=== PATIENT | female | born 1960 | race African-American/Black ===

== ENCOUNTER 2018-05-24 11:00 | Inpatient (IN) | payer MEDICARE, MEDICAID ==
[~2018-05-24] VITALS: Ht 162.6 cm; Wt 91.6 kg
[2018-05-24] MEDS ORDERED: IPRATROPIUM BROMIDE (0.02%) 0.5MG/2.5ML NEB HHN STA ×2 (12:45→19:34)
[2018-05-24] MEDS ORDERED: ALBUTEROL (0.083%) 2.5MG/3ML NEB HHN STA ×2 (12:45→19:34)
[2018-05-24] MEDS ORDERED: SODIUM CHLORIDE 0.9% 1000ML BAG (SEPSIS BOLUS) IV ONE (12:45)
[2018-05-24] MEDS ORDERED: METHYLPREDNISOLONE SOD SUCC 125 MG/2 ML VIAL IV STA (12:45)
[2018-05-24] MEDS ORDERED: LEVOFLOXACIN 750MG PREMIX 150 ML IV ONE (12:45)
[2018-05-24] MEDS ORDERED: MAGNESIUM 2 G PREMIX 50 ML IV ONE (12:45)
[2018-05-24 13:14] LABS: HEMATOCRIT. 50.6 % (36.0-48.0); HEMOGLOBIN. 16.7 g/dL (12.0-16.0); MEAN CORPUSCULAR HEMOGLOBIN 30.5 pg (28.0-32.0); RED CELL DISTRIBUTION WIDTH 16.3 % (11.6-14.6)
[2018-05-24 13:22] LABS: CHLORIDE 104 mEq/L (98-107)
[2018-05-24 13:59] LABS: PLATELET ESTIMATE NORMAL
[2018-05-24 14:29] LABS: PLATELET 200 x1000/uL (130-400)
[2018-05-24 15:22] LABS: CLARITY URINE CLEAR (CLEAR); COLOR URINE YELLOW (YELLOW); KETONES URINE TRACE (NEGATIVE); LEUKOCYTE ESTERASE URINE NEGATIVE (NEGATIVE); NITRITE URINE NEGATIVE (NEGATIVE); OCCULT BLOOD URINE NEGATIVE (NEGATIVE); PROTEIN URINE TRACE (NEGATIVE); SPECIFIC GRAVITY URINE 1.015 (1.005-1.030); UROBILINOGEN URINE 0.2 E.U./dL (0.2-1.0)
[2018-05-24] MEDS ORDERED: ONDANSETRON HCL 4MG/2ML INJ IV PRN (16:15)
[2018-05-24] MEDS ORDERED: MAGNESIUM/ALUMINUM HYDROXIDE/SIMETHICONE 30ML UDC PO PRN (16:15)
[2018-05-24] MEDS ORDERED: CLONIDINE 0.1MG TABLET PO PRN (16:15)
[2018-05-24] MEDS ORDERED: ACETAMINOPHEN 325MG TABLET PO PRN (16:15)
[2018-05-24] MEDS ORDERED: DOCUSATE SODIUM 100MG CAPSULE PO PRN (16:15)
[2018-05-24 18:21] LABS: PARTIAL THROMBOPLASTIN TIME 28.9 sec (23.4-31.0); PROTHROMBIN TIME 10.1 sec (9.1-11.1)
[2018-05-24] MEDS ORDERED: METHYLPREDNISOLONE SOD SUCC 125 MG/2 ML VIAL IV SCH (20:00)
[2018-05-24 21:30] VITALS: BP 141/88
[2018-05-24] MEDS ORDERED: NORT25CA PO (22:28)
[2018-05-24] MEDS: METHYLPREDNISOLONE SOD SUCC 125 MG/2 ML VIAL IV SCH (22:42)
[2018-05-24] MEDS: ENOXAPARIN 40MG/0.4ML SYR SUBCUT SCH (22:42)
[2018-05-24] MEDS: HYDROCODONE/ACETAMINOPHEN 5/325MG TABLET PO PRN (22:44)
[2018-05-24] MEDS: GUAIFENESIN 200MG/10ML SUGAR FREE UDC PO PRN (22:47)
[2018-05-25] VITALS: BP_SYST 136; BP_SYST 138; BP_DIAS 86
[2018-05-25] MEDS ORDERED: OMEP20CA10 PO (00:43)
[2018-05-25] MEDS ORDERED: ASPI-1159 PO (00:43)
[2018-05-25] MEDS ORDERED: NAPR-1176 PO (00:43)
[2018-05-25] MEDS ORDERED: FLUT1DIS3 IH (00:46)
[2018-05-25] MEDS ORDERED: TIOT18CA3 IH (00:47)
[2018-05-25] MEDS ORDERED: DIPH25CA83 PO (00:47)
[2018-05-25] MEDS ORDERED: METH500T6 PO (00:50)
[2018-05-25] MEDS: IPRATROPIUM/ALBUTEROL 0.5-3(2.5)MG/3ML NEB INH SCH ×4 (01:31→20:43)
[2018-05-25 04:00] VITALS: BP 166/89
[2018-05-25] MEDS: METHYLPREDNISOLONE SOD SUCC 125 MG/2 ML VIAL IV SCH ×4 (04:27→22:14)
[2018-05-25] MEDS: GUAIFENESIN 200MG/10ML SUGAR FREE UDC PO PRN (04:27)
[2018-05-25] MEDS: HYDROCODONE/ACETAMINOPHEN 5/325MG TABLET PO PRN ×2 (04:29→22:31)
[2018-05-25 07:00] LABS: BASOPHILS % 0.3 % (0.0-2.0); HEMATOCRIT. 48.3 % (36.0-48.0); HEMOGLOBIN. 15.6 g/dL (12.0-16.0); LYMPHOCYTES % 13.5 % (20.0-50.0); MEAN CORPUSCULAR HEMOGLOBIN 30.3 pg (28.0-32.0); MEAN CORPUSCULAR VOLUME 93.5 fL (81.0-99.0); MEAN PLATELET VOLUME 9.4 fl (7.4-10.4); MONOCYTES % 3.3 % (2.0-8.0); NEUTROPHILS % 82.9 % (40.0-76.0); PLATELET 165 x1000/uL (130-400); RED BLOOD CELL COUNT 5.16 mill/uL (4.2-5.4); RED CELL DISTRIBUTION WIDTH 16.4 % (11.6-14.6)
[2018-05-25 07:10] LABS: CHLORIDE 104 mEq/L (98-107)
[2018-05-25 07:47] LABS: BG BASE EXCESS 4.1 mmol/L (-2.0-2.0); BG CARBOXYHEMOGLOBIN 2.5 % (0.5-1.5); BG DEOXYHEMOGLOBIN 14.1 % (0.0-5.0); BG HCO3 ACT 31.3 mmol/L (22.0-26.0); BG METHEMOGLOBIN 0.1 % (0.0-1.5); BG OXYGEN SATURATION 85.5 % (92.0-98.5); BG OXYHEMOGLOBIN 83.3 % (94.0-97.0); BG PCO2 56.6 mmHg (35.0-45.0); BG PH 7.361 (7.350-7.450); BG PO2 53.1 mmHg (75.0-100.0); BG SAMPLE SITE RIGHT BRACHIAL; BG TOTAL HEMOGLOBIN 16.1 g/dL (12.0-18.0); BG VENT MODE NASAL CANNULA
[2018-05-25 08:00] VITALS: BP 152/85
[2018-05-25] MEDS: AMLODIPINE 10MG TABLET PO SCH (09:40)
[2018-05-25 12:00] VITALS: BP 132/44
[2018-05-25] MEDS ORDERED: LEVOFLOXACIN 500MG PREMIX 100 ML IV SCH (13:00)
[2018-05-25] MEDS ORDERED: LIDOCAINE HCL/PF 1% 2ML VIAL ONE (14:09)
[2018-05-25] MEDS: LORATADINE 10MG TABLET PO SCH (14:43)
[2018-05-25] MEDS: NICOTINE 14MG PATCH TD SCH (14:43)
[2018-05-25 16:00] VITALS: BP 155/76
[2018-05-25] MEDS: MONTELUKAST SODIUM 10MG TABLET PO SCH (17:00)
[2018-05-25 20:00] VITALS: BP 137/75
[2018-05-25] MEDS: FAMOTIDINE 20MG/2ML VIAL IV SCH (22:13)
[2018-05-25] MEDS: ENOXAPARIN 40MG/0.4ML SYR SUBCUT SCH (22:15)
[2018-05-26] MEDS ORDERED: NORT10CA PO (00:39)
[2018-05-26 00:43] VITALS: BP 130/72
[2018-05-26] MEDS: IPRATROPIUM/ALBUTEROL 0.5-3(2.5)MG/3ML NEB INH SCH ×3 (01:59→20:50)
[2018-05-26 04:00] VITALS: BP 122/71
[2018-05-26] MEDS: METHYLPREDNISOLONE SOD SUCC 125 MG/2 ML VIAL IV SCH ×4 (04:44→21:41)
[2018-05-26] MEDS: HYDROCODONE/ACETAMINOPHEN 5/325MG TABLET PO PRN ×4 (04:45→21:43)
[2018-05-26 08:00] VITALS: BP 135/75
[2018-05-26] MEDS: FAMOTIDINE 20MG/2ML VIAL IV SCH ×2 (08:34→21:41)
[2018-05-26] MEDS: LORATADINE 10MG TABLET PO SCH (08:34)
[2018-05-26] MEDS: NICOTINE 14MG PATCH TD SCH (08:34)
[2018-05-26] MEDS: AMLODIPINE 10MG TABLET PO SCH (08:35)
[2018-05-26] MEDS: IPRATROPIUM/ALBUTEROL 0.5-3(2.5)MG/3ML NEB INH PRN (10:05)
[2018-05-26 10:36] LABS: BG BASE EXCESS 3.4 mmol/L (-2.0-2.0); BG CARBOXYHEMOGLOBIN 1.2 % (0.5-1.5); BG DEOXYHEMOGLOBIN 1.5 % (0.0-5.0); BG FRACTION INSPIRED OXYGEN 60; BG HCO3 ACT 30.3 mmol/L (22.0-26.0); BG METHEMOGLOBIN 0.4 % (0.0-1.5); BG OXYGEN SATURATION 98.5 % (92.0-98.5); BG OXYHEMOGLOBIN 96.9 % (94.0-97.0); BG PCO2 54.8 mmHg (35.0-45.0); BG PH 7.361 (7.350-7.450); BG PO2 125.7 mmHg (75.0-100.0); BG SAMPLE SITE RIGHT RADIAL; BG TOTAL HEMOGLOBIN 15.9 g/dL (12.0-18.0); BG VENT MODE MASK - BIPAP; BG VENT RATE 14 set
[2018-05-26 12:00] VITALS: BP 119/48
[2018-05-26] MEDS ORDERED: DOCUSATE SODIUM 250MG CAPSULE PO NR (15:15)
[2018-05-26] MEDS ORDERED: LACTULOSE 20G/30ML UDC PO NR (15:15)
[2018-05-26 16:00] VITALS: BP 124/51
[2018-05-26] MEDS: MONTELUKAST SODIUM 10MG TABLET PO SCH (17:02)
[2018-05-26] MEDS: LEVOFLOXACIN 500MG PREMIX 100 ML IV SCH (17:03)
[2018-05-26 20:00] VITALS: BP 110/47
[2018-05-26] MEDS: GUAIFENESIN 200MG/10ML SUGAR FREE UDC PO PRN (21:41)
[2018-05-26] MEDS: FLUTICASONE PROPIONATE 50MCG/SPRAY BOTTLE BOTHNSTRLS SCH (21:42)
[2018-05-26] MEDS: ENOXAPARIN 40MG/0.4ML SYR SUBCUT SCH (21:42)
[2018-05-26] MEDS: GUAIFENESIN 600MG ER TABLET PO SCH (21:42)
[2018-05-27] VITALS: BP 111/68
[2018-05-27] MEDS: IPRATROPIUM/ALBUTEROL 0.5-3(2.5)MG/3ML NEB INH SCH ×5 (01:45→20:26)
[2018-05-27 04:00] VITALS: BP 121/69
[2018-05-27] MEDS: METHYLPREDNISOLONE SOD SUCC 125 MG/2 ML VIAL IV SCH ×4 (04:30→21:12)
[2018-05-27] MEDS: HYDROCODONE/ACETAMINOPHEN 5/325MG TABLET PO PRN ×4 (05:30→21:26)
[2018-05-27 08:00] VITALS: BP 148/87
[2018-05-27] MEDS: NICOTINE 14MG PATCH TD SCH (08:57)
[2018-05-27] MEDS: LORATADINE 10MG TABLET PO SCH (08:58)
[2018-05-27] MEDS: FLUTICASONE PROPIONATE 50MCG/SPRAY BOTTLE BOTHNSTRLS SCH ×2 (08:58→21:12)
[2018-05-27] MEDS: GUAIFENESIN 600MG ER TABLET PO SCH ×2 (08:58→21:12)
[2018-05-27] MEDS: AMLODIPINE 10MG TABLET PO SCH (08:58)
[2018-05-27] MEDS: FAMOTIDINE 20MG/2ML VIAL IV SCH ×2 (08:58→21:12)
[2018-05-27] MEDS: OXYMETAZOLINE HCL NASAL SPRAY 15ML BOTHNSTRLS PRN (08:59)
[2018-05-27 12:00] VITALS: BP 128/75
[2018-05-27] MEDS: LEVOFLOXACIN 500MG PREMIX 100 ML IV SCH (15:06)
[2018-05-27 16:00] VITALS: BP 109/48
[2018-05-27] MEDS: MONTELUKAST SODIUM 10MG TABLET PO SCH (16:39)
[2018-05-27] MEDS: GUAIFENESIN 200MG/10ML SUGAR FREE UDC PO PRN (16:51)
[2018-05-27] MEDS ORDERED: TERBUTALINE SULFATE 1MG/ML VIAL SUBCUT NR (17:15)
[2018-05-27 20:00] VITALS: BP 137/61
[2018-05-27] MEDS: ENOXAPARIN 40MG/0.4ML SYR SUBCUT SCH (21:12)
[2018-05-27] MEDS ORDERED: DIPHENHYDRAMINE 50MG/ML VIAL IV PRN (22:45)
[2018-05-28] VITALS: BP 126/63
[2018-05-28] MEDS: IPRATROPIUM/ALBUTEROL 0.5-3(2.5)MG/3ML NEB INH SCH ×4 (00:26→20:08)
[2018-05-28 04:00] VITALS: BP 105/57
[2018-05-28] MEDS: METHYLPREDNISOLONE SOD SUCC 125 MG/2 ML VIAL IV SCH ×2 (05:12→11:23)
[2018-05-28] MEDS: HYDROCODONE/ACETAMINOPHEN 5/325MG TABLET PO PRN ×3 (05:13→18:54)
[2018-05-28 08:00] VITALS: BP 138/70
[2018-05-28] MEDS: FLUTICASONE PROPIONATE 50MCG/SPRAY BOTTLE BOTHNSTRLS SCH ×2 (08:16→21:08)
[2018-05-28] MEDS: GUAIFENESIN 200MG/10ML SUGAR FREE UDC PO PRN ×2 (08:16→21:14)
[2018-05-28] MEDS: FAMOTIDINE 20MG/2ML VIAL IV SCH ×2 (08:17→21:00)
[2018-05-28] MEDS: AMLODIPINE 10MG TABLET PO SCH (08:17)
[2018-05-28] MEDS: OXYMETAZOLINE HCL NASAL SPRAY 15ML BOTHNSTRLS PRN (08:17)
[2018-05-28] MEDS: LORATADINE 10MG TABLET PO SCH (08:17)
[2018-05-28] MEDS: NICOTINE 14MG PATCH TD SCH (08:18)
[2018-05-28] MEDS: GUAIFENESIN 600MG ER TABLET PO SCH ×2 (08:18→21:12)
[2018-05-28] MEDS: IPRATROPIUM/ALBUTEROL 0.5-3(2.5)MG/3ML NEB INH PRN (11:34)
[2018-05-28 12:00] VITALS: BP 127/74
[2018-05-28] MEDS: LEVOFLOXACIN 500MG PREMIX 100 ML IV SCH (14:18)
[2018-05-28] MEDS ORDERED: TERBUTALINE SULFATE 1MG/ML VIAL SUBCUT SCH (15:00)
[2018-05-28 16:00] VITALS: BP 129/76
[2018-05-28] MEDS ORDERED: METHYLPREDNISOLONE SOD SUCC 40 MG/ML VIAL IV SCH (18:00)
[2018-05-28] MEDS: MONTELUKAST SODIUM 10MG TABLET PO SCH (18:46)
[2018-05-28] MEDS: PREDNISONE 20MG TABLET PO SCH (18:55)
[2018-05-28 20:00] VITALS: BP 128/72
[2018-05-28] MEDS: BUDESONIDE 0.5MG/2ML NEB HHN SCH (20:08)
[2018-05-28] MEDS: ENOXAPARIN 30MG/0.3ML SYR SUBCUT SCH (21:08)
[2018-05-29] VITALS: BP 153/78
[2018-05-29] MEDS: HYDROCODONE/ACETAMINOPHEN 5/325MG TABLET PO PRN ×4 (01:06→20:45)
[2018-05-29] MEDS: IPRATROPIUM/ALBUTEROL 0.5-3(2.5)MG/3ML NEB INH SCH ×3 (01:12→21:52)
[2018-05-29 04:00] VITALS: BP 121/67
[2018-05-29 08:00] VITALS: BP 132/78
[2018-05-29] MEDS: BUDESONIDE 0.5MG/2ML NEB HHN SCH ×2 (08:27→21:51)
[2018-05-29] MEDS: AMLODIPINE 10MG TABLET PO SCH (08:45)
[2018-05-29] MEDS: PREDNISONE 20MG TABLET PO SCH (08:46)
[2018-05-29] MEDS: LORATADINE 10MG TABLET PO SCH (08:46)
[2018-05-29] MEDS: FAMOTIDINE 20MG TABLET PO SCH ×2 (08:46→20:45)
[2018-05-29] MEDS: ENOXAPARIN 30MG/0.3ML SYR SUBCUT SCH ×2 (08:46→20:45)
[2018-05-29] MEDS: GUAIFENESIN 600MG ER TABLET PO SCH ×2 (08:46→20:45)
[2018-05-29] MEDS: NICOTINE 14MG PATCH TD SCH (08:47)
[2018-05-29] MEDS: OXYMETAZOLINE HCL NASAL SPRAY 15ML BOTHNSTRLS PRN (08:57)
[2018-05-29] MEDS: FLUTICASONE PROPIONATE 50MCG/SPRAY BOTTLE BOTHNSTRLS SCH ×2 (09:30→20:45)
[2018-05-29] MEDS: LEVOFLOXACIN 500MG TABLET PO SCH (10:55)
[2018-05-29] MEDS ORDERED: MECLIZINE 25MG TABLET PO PRN (11:15)
[2018-05-29 12:00] VITALS: BP 114/59
[2018-05-29] MEDS ORDERED: LIDOCAINE HCL/PF 1% 2ML VIAL ONE (14:17)
[2018-05-29] MEDS: IPRATROPIUM/ALBUTEROL 0.5-3(2.5)MG/3ML NEB INH PRN (14:31)
[2018-05-29 15:51] LABS: BG BASE EXCESS 5.1 mmol/L (-2.0-2.0); BG CARBOXYHEMOGLOBIN 1.4 % (0.5-1.5); BG HCO3 ACT 29.2 mmol/L (22.0-26.0); BG METHEMOGLOBIN 0.4 % (0.0-1.5); BG OXYGEN SATURATION 93.9 % (92.0-98.5); BG OXYHEMOGLOBIN 92.2 % (94.0-97.0); BG PCO2 41.1 mmHg (35.0-45.0); BG SAMPLE SITE RIGHT RADIAL; BG TOTAL HEMOGLOBIN 16.7 g/dL (12.0-18.0); BG VENT MODE NASAL CANNULA
[2018-05-29 16:05] VITALS: BP 116/78
[2018-05-29] MEDS: MONTELUKAST SODIUM 10MG TABLET PO SCH (16:55)
[2018-05-29 20:00] VITALS: BP 138/84
[2018-05-30] VITALS: BP 124/54
[2018-05-30] MEDS: HYDROCODONE/ACETAMINOPHEN 5/325MG TABLET PO PRN ×4 (01:46→20:51)
[2018-05-30] MEDS: IPRATROPIUM/ALBUTEROL 0.5-3(2.5)MG/3ML NEB INH SCH ×5 (02:05→21:03)
[2018-05-30 06:19] VITALS: BP 132/68
[2018-05-30 07:48] LABS: HEMOGLOBIN 16.3 g/dL (12.0-16.0); MEAN CORPUSCULAR HEMOGLOBIN 29.8 pg (28.0-32.0); MEAN CORPUSCULAR VOLUME 91.2 fL (81.0-99.0); PLATELET 231 x1000/uL (130-400); RED BLOOD CELL COUNT 5.48 mill/uL (4.2-5.4); RED CELL DISTRIBUTION WIDTH 15.7 % (11.6-14.6)
[2018-05-30 08:00] VITALS: BP 132/79
[2018-05-30] MEDS: GUAIFENESIN 600MG ER TABLET PO SCH ×2 (08:51→20:50)
[2018-05-30] MEDS: FAMOTIDINE 20MG TABLET PO SCH ×2 (08:51→20:51)
[2018-05-30] MEDS: PREDNISONE 20MG TABLET PO SCH (08:52)
[2018-05-30] MEDS: ENOXAPARIN 30MG/0.3ML SYR SUBCUT SCH ×2 (08:54→20:50)
[2018-05-30] MEDS: AMLODIPINE 10MG TABLET PO SCH (08:57)
[2018-05-30] MEDS: LORATADINE 10MG TABLET PO SCH (08:59)
[2018-05-30] MEDS: NICOTINE 14MG PATCH TD SCH (09:07)
[2018-05-30] MEDS: GUAIFENESIN 200MG/10ML SUGAR FREE UDC PO PRN ×2 (09:45→20:55)
[2018-05-30] MEDS: BUDESONIDE 0.5MG/2ML NEB HHN SCH ×2 (10:31→21:03)
[2018-05-30] MEDS: LEVOFLOXACIN 500MG TABLET PO SCH (11:10)
[2018-05-30 12:00] VITALS: BP 128/65
[2018-05-30 16:00] VITALS: BP 124/77
[2018-05-30] MEDS: MONTELUKAST SODIUM 10MG TABLET PO SCH (16:59)
[2018-05-30 20:34] VITALS: BP 132/75
[2018-05-31] VITALS: BP 106/52
[2018-05-31] MEDS: IPRATROPIUM/ALBUTEROL 0.5-3(2.5)MG/3ML NEB INH SCH ×4 (01:45→21:54)
[2018-05-31] MEDS: HYDROCODONE/ACETAMINOPHEN 5/325MG TABLET PO PRN ×3 (03:27→21:36)
[2018-05-31 04:00] VITALS: BP 103/59
[2018-05-31 08:00] VITALS: BP 128/75
[2018-05-31] MEDS: FAMOTIDINE 20MG TABLET PO SCH ×2 (09:07→21:37)
[2018-05-31] MEDS: PREDNISONE 20MG TABLET PO SCH ×2 (09:07→19:06)
[2018-05-31] MEDS: AMLODIPINE 10MG TABLET PO SCH (09:07)
[2018-05-31] MEDS: LORATADINE 10MG TABLET PO SCH (09:08)
[2018-05-31] MEDS: GUAIFENESIN 600MG ER TABLET PO SCH ×2 (09:08→21:37)
[2018-05-31] MEDS: NICOTINE 14MG PATCH TD SCH (09:09)
[2018-05-31] MEDS: ENOXAPARIN 30MG/0.3ML SYR SUBCUT SCH ×2 (09:09→21:37)
[2018-05-31] MEDS: BUDESONIDE 0.5MG/2ML NEB HHN SCH ×2 (09:14→21:54)
[2018-05-31] MEDS: GUAIFENESIN 200MG/10ML SUGAR FREE UDC PO PRN (09:15)
[2018-05-31 10:39] LABS: BG BASE EXCESS 6.2 mmol/L (-2.0-2.0); BG CARBOXYHEMOGLOBIN 1.3 % (0.5-1.5); BG DEOXYHEMOGLOBIN 5.5 % (0.0-5.0); BG FRACTION INSPIRED OXYGEN 32; BG METHEMOGLOBIN 0.4 % (0.0-1.5); BG OXYGEN SATURATION 94.4 % (92.0-98.5); BG OXYHEMOGLOBIN 92.8 % (94.0-97.0); BG PCO2 49.9 mmHg (35.0-45.0); BG PH 7.425 (7.350-7.450); BG PO2 73.6 mmHg (75.0-100.0); BG SAMPLE SITE RIGHT BRACHIAL; BG TOTAL HEMOGLOBIN 16.4 g/dL (12.0-18.0); BG VENT MODE NASAL CANNULA
[2018-05-31 12:00] VITALS: BP 126/74
[2018-05-31] MEDS: LEVOFLOXACIN 500MG TABLET PO SCH (12:24)
[2018-05-31] MEDS ORDERED: LIDOCAINE HCL/PF 1% 2ML VIAL ONE (14:44)
[2018-05-31 16:00] VITALS: BP 133/75
[2018-05-31] MEDS: MONTELUKAST SODIUM 10MG TABLET PO SCH (19:07)
[2018-05-31 20:00] VITALS: BP 120/68
[2018-06-01] VITALS: BP 129/75
[2018-06-01 00:03] LABS: METHADONE URINE SCREEN NEGATIVE (NEGATIVE); OPIATES URINE SCREEN PRESUMTIVE POSITIVE (NEGATIVE); PHENCYCLIDINE URINE SCREEN NEGATIVE (NEGATIVE)
[2018-06-01 00:04] LABS: *AMPHETAMINES SCREEN URINE NEGATIVE (NEGATIVE); *BARBITURATES SCREEN URINE NEGATIVE (NEGATIVE); *BENZODIAZEPINES SCREEN URINE NEGATIVE (NEGATIVE); *COCAINE SCREEN URINE PRESUMTIVE POSITIVE (NEGATIVE); CANNABINOID URINE SCREEN NEGATIVE (NEGATIVE)
[2018-06-01] MEDS: IPRATROPIUM/ALBUTEROL 0.5-3(2.5)MG/3ML NEB INH SCH ×4 (02:12→21:33)
[2018-06-01] MEDS: HYDROCODONE/ACETAMINOPHEN 5/325MG TABLET PO PRN ×3 (02:51→22:01)
[2018-06-01 04:00] VITALS: BP 131/73
[2018-06-01 08:00] VITALS: BP 123/69
[2018-06-01] MEDS: BUDESONIDE 0.5MG/2ML NEB HHN SCH ×2 (08:32→21:32)
[2018-06-01] MEDS: LORATADINE 10MG TABLET PO SCH (09:05)
[2018-06-01] MEDS: GUAIFENESIN 600MG ER TABLET PO SCH ×2 (09:05→22:01)
[2018-06-01] MEDS: NICOTINE 14MG PATCH TD SCH (09:05)
[2018-06-01] MEDS: ENOXAPARIN 30MG/0.3ML SYR SUBCUT SCH ×2 (09:05→22:02)
[2018-06-01] MEDS: FAMOTIDINE 20MG TABLET PO SCH ×2 (09:05→22:01)
[2018-06-01] MEDS: AMLODIPINE 10MG TABLET PO SCH (09:08)
[2018-06-01] MEDS: PREDNISONE 20MG TABLET PO SCH ×2 (09:16→19:03)
[2018-06-01] MEDS: LEVOFLOXACIN 500MG TABLET PO SCH (11:49)
[2018-06-01 12:00] VITALS: BP 120/64
[2018-06-01 16:00] VITALS: BP 118/66
[2018-06-01] MEDS: MONTELUKAST SODIUM 10MG TABLET PO SCH (17:00)
[2018-06-01 20:00] VITALS: BP 111/56
[2018-06-02] VITALS: BP 123/66
[2018-06-02] MEDS: IPRATROPIUM/ALBUTEROL 0.5-3(2.5)MG/3ML NEB INH SCH ×3 (01:52→14:32)
[2018-06-02 04:00] VITALS: BP 110/50
[2018-06-02 08:00] VITALS: BP 128/67
[2018-06-02] MEDS: FAMOTIDINE 20MG TABLET PO SCH (08:53)
[2018-06-02] MEDS: NICOTINE 14MG PATCH TD SCH (08:54)
[2018-06-02] MEDS: AMLODIPINE 10MG TABLET PO SCH (08:54)
[2018-06-02] MEDS: GUAIFENESIN 600MG ER TABLET PO SCH (08:54)
[2018-06-02] MEDS: LORATADINE 10MG TABLET PO SCH (08:54)
[2018-06-02] MEDS: ENOXAPARIN 30MG/0.3ML SYR SUBCUT SCH (08:58)
[2018-06-02] MEDS: BUDESONIDE 0.5MG/2ML NEB HHN SCH (09:16)
[2018-06-02] MEDS: PREDNISONE 20MG TABLET PO SCH (10:32)
[2018-06-02] MEDS: HYDROCODONE/ACETAMINOPHEN 5/325MG TABLET PO PRN (10:32)
[2018-06-02 12:00] VITALS: BP 134/78
[2018-06-02] MEDS: LEVOFLOXACIN 500MG TABLET PO SCH (12:40)
[2018-06-02 15:11] VITALS: BP 128/74
== END 2018-06-02 15:27 | disposition home or self-care (01) | DRG 193 ==
LOC: ER 11:00 → 7WST 15:26 → EDBEDREQ 15:30 → SUPCPDRO 16:03 → ENRESERV 19:51
PROVIDERS: ADMIT Hospitalist; ATTEND Hospitalist
PROC: 5A09357 Assistance with Respiratory Ventilation, Less than 24 Consecutive Hours, Continuous Positive Airway Pressure (ICD-10-PCS; principal; 2018-05-25)
PROC: 5A09357 Assistance with Respiratory Ventilation, Less than 24 Consecutive Hours, Continuous Positive Airway Pressure (ICD-10-PCS; 2018-05-26)
PROC: 5A09357 Assistance with Respiratory Ventilation, Less than 24 Consecutive Hours, Continuous Positive Airway Pressure (ICD-10-PCS; 2018-05-27)
PROC: 5A09357 Assistance with Respiratory Ventilation, Less than 24 Consecutive Hours, Continuous Positive Airway Pressure (ICD-10-PCS; 2018-05-28)
DX: J18.9 Pneumonia, unspecified organism (principal); J96.00 Acute respiratory failure, unspecified whether with hypoxia or hypercapnia; J44.1 Chronic obstructive pulmonary disease with (acute) exacerbation; J45.901 Unspecified asthma with (acute) exacerbation; J44.0 Chronic obstructive pulmonary disease with (acute) lower respiratory infection; I10 Essential (primary) hypertension; K21.9 Gastro-esophageal reflux disease without esophagitis; K59.00 Constipation, unspecified; J32.9 Chronic sinusitis, unspecified; F14.90 Cocaine use, unspecified, uncomplicated; F17.210 Nicotine dependence, cigarettes, uncomplicated; Z82.49 Family history of ischemic heart disease and other diseases of the circulatory system; Z71.6 Tobacco abuse counseling
CPT/HCPCS: 36415; 36600; 71045; 80305; 82375; 82805; 83605; 83880; 84145; 84484; 85027; 87804; 93005; 93970; 94618; 94640; 94660; 96365; 96366; 96368; 96375; 99285; C1893; J1200; J1650; J1956; J2930; J3105; J3475; J3490; J7030; J7040; J7512; J7611; J7620; J7626